=== PATIENT | female | born 1975 | race Caucasian/White ===

== ENCOUNTER 2020-10-04 21:02 | Emergency (ER) | payer OTHER, SELFPAY ==
[2020-10-04 21:25] VITALS: BP 111/62; PULSE 93; RESP 18; TEMP 36.9; O2SAT 97
[2020-10-04] MEDS: BELLADONNA ALK/PHENOB ELIX 10 ML, MAG HYDROX/ALUMINUM HYD/SIMETH 30 ML, LIDOCAINE HCL 2... PO (23:01)
[2020-10-04 23:41] VITALS: BP 122/68; PULSE 84; RESP 18; O2SAT 99
--- NOTE | 2020-10-05 00:01 | ED.NAVMDI ---
HPI - Nausea/Vomiting/Diarrhea General Chief complaint: Nausea/Vomiting/Diarrhea Stated complaint: upset stomach Time Seen by Provider: 10/04/20 22:39 History of Present Illness HPI Narrative: Patient is a 45-year-old female who presents ER with bubbling stomach discomfort. Ongoing over the last couple of days. She has bubbling that goes up into the back of her throat and makes her feel like she has to spit. She has a very bad taste in the back of her throat. She is able to eat and drink but feels like he is constantly trying to come back up. No fevers or chills or sweats. No abdominal tenderness. Denies having similar symptoms previously. Related Data Home Medications Medication Instructions Recorded Confirmed oxcarbazepine 150 mg PO DAILY 10/04/20 10/04/20 propranolol 40 mg PO DAILY 10/04/20 10/04/20 quetiapine 100 mg PO DAILY 10/04/20 10/04/20 valacyclovir 500 mg PO DAILY 10/04/20 10/04/20 Allergies Allergy/AdvReac Type Severity Reaction Status Date / Time bupropion [From Wellbutrin] Allergy Rash Verified 10/04/20 22:58 Review of Systems Review of Systems: All systems reviewed & are unremarkable except as noted in HPI and below Constitutional: Constitutional: Denies chills and Denies fever(s) Respiratory: Respiratory: Denies cough and Denies dyspnea Gastrointestinal: Gastrointestinal: Reports abdominal pain, Reports bloating, Reports heartburn, Reports nausea and Denies vomiting PMFSH Past Medical History Medical History (Updated 10/05/20 @ 00:09 by Jared Navarrete MD) Anxiety Surgical History Surgical History (Updated 10/05/20 @ 00:09 by Jared Navarrete MD) History of tonsillectomy History of tubal ligation Social History Social History (Updated 10/05/20 @ 00:09 by Jarde Navarrete MD) Smoking status: Current every day smoker Alcohol intake: former Exam Narrative: Exam Narrative: GENERAL: Well-appearing, sitting upright in bed spitting into emesis bag, well-nourished, and in no acute distress. HEAD: Normocephalic, atraumatic. ENT: Mucous membranes moist. EXTREMITIES: Normal range of motion. No edema. SKIN: Warm, dry, no rash. NEURO: Alert and oriented x3. PSYCH: Normal mood and affect. Course Course Emergency Course: Patient had improvement with GI cocktail. Discharge home with Protonix. Follow-up with PCP. Vital Signs Vital signs: Vital Signs Temperature 98.4 F 10/04/20 21:25 Pulse Rate 93 10/04/20 21:25 Respiratory Rate 18 10/04/20 21:25 Blood Pressure 111/62 10/04/20 21:25 Pulse Oximetry 97 10/04/20 21:25 Temperature 98.4 F 10/04/20 21:25 Pulse Rate 84 10/04/20 23:41 Respiratory Rate 18 10/04/20 23:41 Blood Pressure 122/68 10/04/20 23:41 Pulse Oximetry 99 10/04/20 23:41 Discharge Plan Discharge Clinical Impression: GERD (gastroesophageal reflux disease) Patient Disposition: Home, Self-Care Condition: Stable Instructions: Diet for Stomach Ulcers and Gastritis (ED), GERD (Gastroesophageal Reflux Disease) (ED) Additional Instructions: Return to the ER if you have fever over 100.4 ?F, you cannot keep down food or water, you have severe abdominal pain, you have additional concerns. Prescriptions: New pantoprazole 40 mg tablet,delayed release (DR/EC) 40 mg PO HS Qty: 14 RF: 0 No Action oxcarbazepine 150 mg tablet 150 mg PO DAILY RF: 0 valacyclovir 500 mg tablet 500 mg PO DAILY RF: 0 quetiapine 100 mg tablet 100 mg PO DAILY RF: 0 propranolol 40 mg tablet 40 mg PO DAILY RF: 0 Follow-up/Referrals: PHYSICIAN NOT ON STAFF,NONSTAFF [Primary Care Provider] - Olivier Buckley DO [Physician] - 1 Week
[2020-10-05] MEDS: PANTOPRAZOLE 40 MG TABLET PO (00:27)
[2020-10-05 00:30] VITALS: BP 117/62; PULSE 79; RESP 18; O2SAT 100
== END 2020-10-05 00:30 | disposition home or self-care (01) ==
PROVIDERS: Emergency Provider Emergency Medicine
DX: K21.9 Gastro-esophageal reflux disease without esophagitis (principal); F41.9 Anxiety disorder, unspecified; F17.200 Nicotine dependence, unspecified, uncomplicated
CPT/HCPCS: 99283; A9270

== ENCOUNTER 2020-11-26 02:40 | Emergency (ER) | payer OTHER, SELFPAY ==
--- NOTE | ~2020-11-26 | CT_ITS ---
EXAMINATION: CT abdomen pelvis w con INDICATION: Right lower abdominal pain TECHNIQUE: Computed tomographic images of the abdomen and pelvis were obtained after the administrati on of 100 cc of Omnipaque 350 intravenous contrast. The dose-length product (DLP) was 166.28 mGy-cm. Automated exposure control and iterative reconstruction technique were employed. COMPARISON: None available FINDINGS: Minimal dependent atelectasis is present in the lung bases. The heart size is normal. Cysts of the liver measure up to 4 mm. The spleen, pancreas, gallbladder, and adrenal glands are normal. T he left kidney is unremarkable. Cysts of the right kidney measure up to 8 mm. There is calcified athe rosclerosis of the aorta and many of the other arteries. No pathologically enlarged abdominal or pelv ic lymph nodes are identified. The appendix is normal. There is an 11 mm cystic area to the left of m idline located behind the pubic symphysis which could reflect a Bonifacio duct cyst or possible urethra l diverticulum. A fat-containing umbilical hernia is noted. IMPRESSION: 1. No CT correlate for the patient's symptoms. Reviewed, dictated and finalized at location B.
[2020-11-26 02:45] VITALS: BP 108/64; PULSE 74; RESP 18; TEMP 36.3; O2SAT 99
[2020-11-26 03:11] LABS: Basophils Absolute Auto 0.1 K/mm3 (0.0-0.1); Eosinophils Absolute Auto 0.2 K/mm3 (0-0.3); Eosinophils Percent Auto 3.3 % (0-4.4); Hematocrit 40.1 % (37.0-47.0); Hemoglobin 13.6 g/dL (12.0-15.0); Immature Granulocyte Absolute 0.02 K/mm3 (0.00-0.031); Immature Granulocyte Percent A 0.3 % (0-0.5); Lymphocytes Percent Auto 46.7 % (18.3-44.2); Mean Corpuscular HGB Conc 33.9 g/dl (32-36); Mean Corpuscular Hemoglobin 31.1 pg (26-34); Mean Corpuscular Volume 91.6 fl (80-100); Mean Platelet Volume 9.4 fl (7.4-10.4); Monocytes Absolute Auto 0.7 K/mm3 (0.1-0.6); Monocytes Percent Auto 9.2 % (2.6-8.5); Neutrophils Absolute Auto 2.9 K/mm3 (1.3-6.7); Neutrophils Percent Auto 39.5 % (45.5-73.1); Platelet Count Result 263 k/mm3 (150-375); Red Blood Count 4.38 M/mm3 (4.2-5.4); Red Cell Distribution Width 12.7 % (11.5-14.5); White Blood Count 7.3 K/mm3 (4.5-10.0)
[2020-11-26 03:22] LABS: Alanine Aminotransferase 14 U/L (4-35); Albumin Level 4.2 g/dL (3.5-5.1); Alkaline Phosphatase 54 U/L (38-126); Anion Gap 8 mmol/L (8-16); Aspartate Amino Transferase 21 U/L (14-36); Bilirubin,Total 0.3 mg/dL (0.2-1.3); Blood Urea Nitrogen 10 mg/dL (7-17); Calcium 8.8 mg/dL (8.4-10.2); Carbon Dioxide 22 mmol/L (22-30); Chloride 105 mmol/L (98-107); Estimated CRCL calculation 62 ml/min; Estimated Glomerular Filt Rate > 60; Glucose 100 mg/dL (65-110); Lipase 60 U/L (23-300); Potassium 3.3 mmol/L (3.4-5.0); Sodium 135 mmol/L (137-145)
--- NOTE | 2020-11-26 04:03 | PC.NURSE ---
pt ambulated to intake nurse demanding a cup of water. pt states I have anxiety, i need a cup of water now. I have pills in my mouth.
--- NOTE | 2020-11-26 04:12 | PC.NURSE ---
this rn observed patient pacing the waiting room from end to end, yelling into the phone, and telling someone hurry the [facility] up, get me out of here, its this [facility]
--- NOTE | 2020-11-26 04:21 | PC.NURSE ---
financial services specialist observed patient walking in front of intake desk, and verbalize I am going to fucking Kill myself.
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
--- NOTE | 2020-11-26 04:37 | PC.NURSE ---
Pt states that she would never kill herself because she made a promise to her son that she wouldn't and if she broke that promise she doesn't know what would happen. Pt states that thinking about using blades on her wrists doesn't count as intending to kill herself. Pt is frequently shifting subjects, talking to herself about what is real and what is not, unable to complete a thought before moving on to the next.
--- NOTE | 2020-11-26 04:43 | PC.NURSE ---
Pt arguing with people who are not there, hearing voices. Pt appears to be agitated at this time.
--- NOTE | 2020-11-26 04:51 | PC.NURSE ---
spoke with patient mother, patient recently moved in with her and patient has a history of bi-polar, ptsd, and behavior disorder. Per mother patient is an alcoholic, although she does not feel she drank today.
[2020-11-26 05:36] LABS: Add Urine Microscopic? YES; Appearance Urine Cloudy (Clear); Bacteria Urine Trace /hpf; Bilirubin Urine Negative (Negative); Blood Urine Negative (Negative); Color Urine Yellow (Yellow); Glucose Urine UA Negative (Negative); Ketones Urine Negative (Negative); Leukocyte Esterase Ur 3+ LEU/UL (Negative); Mucus Urine Heavy /lpf; Nitrate Urine Negative (Negative); Protein Urine 1+ mg/dL (Negative); Specific Grav Ur 1.024 (1.001-1.035); Squamous Epithelial Cell Urine Many /hpf (Few); Urobilinogen Urine Negative mg/dL (<2.0); WBC Urine >75 /hpf
[2020-11-26 05:43] LABS: Ethanol < 10 mg/dL (<10)
[2020-11-26 05:57] LABS: Amphetamine Screen Urine Negative (Negative); Barbiturate Screen Urine Negative (Negative); Benzodiazepines Screen Urine Negative (Negative); Cannabinoid Screen Urine Negative (Negative); Cocaine Screen Urine Negative (Negative); Methadone Screen Urine Negative (Negative); Opiate Screen Urine Negative (Negative); Phencyclidine Screen Urine Negative (Negative)
[2020-11-26 06:10] VITALS: BP 110/71; PULSE 62; RESP 16; TEMP 36.9; O2SAT 100
--- NOTE | 2020-11-26 07:08 | ED.PSYCH ---
HPI - Psych General Chief Complaint: Psychiatric Symptoms <Laura Childers MD - Last Filed: 11/26/20 08:38> Stated Complaint: weak, gas is excaping from some where it shouldnt <Laura Childers MD - Last Filed: 11/26/20 08:38> Time Seen by Provider: 11/26/20 05:45 <Laura Childers MD - Last Filed: 11/26/20 08:38> Source: patient and RN notes reviewed <Laura Childers MD - Last Filed: 11/26/20 08:38> Mode of arrival: ambulatory <Laura Childers MD - Last Filed: 11/26/20 08:38> Limitations: no limitations <Laura Childers MD - Last Filed: 11/26/20 08:38> History of Present Illness HPI Narrative: This is a 45 year old female with history of PTSD, bipolar who presents for evaluation of abdominal pain. She developed weakness, abdominal discomfort 1 hour prior to coming to ER. She also reports increased bubbling in her stomach. She denies nausea, vomiting. She does reports vaginal irritation and itching. She thinks she has a UTI. She denies vaginal discharge. Nursing staff states on arrival patient told them she lied about having abdominal pain, but she was here for psychiatric issue. Nursing staff states patient told them she wanted to kill herself. Patient admits to have suicidal thoughts in the past but she states she told her son should would not do anything. She does admit she is having increased anxiety and flare up of her PTSD. <Laura Childers MD - Last Filed: 11/26/20 08:38> Related Data Home Medications: Home Medications Medication Instructions Recorded Confirmed oxcarbazepine 150 mg PO DAILY 10/04/20 10/04/20 propranolol 40 mg PO DAILY 10/04/20 10/04/20 quetiapine 100 mg PO DAILY 10/04/20 10/04/20 valacyclovir 500 mg PO DAILY 10/04/20 10/04/20 citalopram mg 11/26/20 hydroxyzine pamoate 11/26/20 <Laura Childers MD - Last Filed: 11/26/20 08:38> Allergies/Adverse Reactions: Allergies Allergy/AdvReac Type Severity Reaction Status Date / Time bupropion [From Wellbutrin] Allergy Rash Verified 11/26/20 02:48 <Laura Childers MD - Last Filed: 11/26/20 08:38> Review of Systems Review of Systems: All systems reviewed & are unremarkable except as noted in HPI and below <Laura Childers MD - Last Filed: 11/26/20 08:38> [facility] Past Medical History Medical History: Medical History (Updated 11/26/20 @ 22:37 by Niesha Bullock MD) Anxiety PTSD (post-traumatic stress disorder) <Laura Childers MD - Last Filed: 11/26/20 08:38> Surgical History Surgical History: Surgical History History of tonsillectomy History of tubal ligation <Laura Childers MD - Last Filed: 11/26/20 08:38> Social History Social History: Social History (Updated 11/26/20 @ 07:12 by Laura Childers MD) Smoking status: Current every day smoker Alcohol intake: current Substance use type: former substance user Gender identity (if verbalized by the patient): Female Sexual Orientation (if Verbalized by the Patient): Straight or Heterosexual <Laura Childers MD - Last Filed: 11/26/20 08:38> Exam Const: General: no acute distress and alert <Laura Childers MD - Last Filed: 11/26/20 08:38> Orientation/consciousness: patient oriented x3 <Laura Childers MD - Last Filed: 11/26/20 08:38> Neck: Neck: no lymphadenopathy <Laura Childers MD - Last Filed: 11/26/20 08:38> Chest: Chest palpation & inspection: normal inspection of the chest <Laura Childers MD - Last Filed: 11/26/20 08:38> Resp: Effort & Inspection: normal respiratory effort and no retractions <Laura Childers MD - Last Filed: 11/26/20 08:38> Auscultation: clear to auscultation bilaterally <Laura Childers MD - Last Filed: 11/26/20 08:38> Cardio: Rate: regular rate <Laura Childers MD - Last Filed: 11/26/20 08:38> Rhythm: regular rhythm <Laura Childers MD - Last Filed: 11/26/20 08
--- NOTE | 2020-11-26 07:15 | PC.NURSE ---
Ordered patient a breakfast tray
--- NOTE | 2020-11-26 07:45 | PC.NURSE ---
This RN in room to introduce self and check room. This RN asked pt how she was feeling and if she had thoughts of hurting herself. Pt states yes i want to hurt myslef but i can't in here so i have really bad anxiety! Pt begins to escalates and starts screaming GET ME SOMETHING ANXIETY NOW!!! get me a DOCTOR NOW! pt then begins to scream flight of ideas and screaming foul language. Pt calling this RN and Dr. Liseth anna names. Dr Liseth ARGUETA for 2 mg of IV ativan.
[2020-11-26 07:53] VITALS: BP 104/81; PULSE 68; RESP 18; O2SAT 99
[2020-11-26] MEDS: LORazepam INJ (*CRX) 2 MG/ML VIAL (07:53)
--- NOTE | 2020-11-26 08:00 | PC.NURSE ---
Pt back in bed, pt apologizing for screaming. Pt given breakfast tray and thanks me.
--- NOTE | 2020-11-26 08:26 | PC.NURSE ---
[facility] here to speak with pt, however pt is sleeping and not arousable at this time. they state they will come back when she is awake
--- NOTE | 2020-11-26 11:39 | PC.NURSE ---
called crisis to come back out to evaluate pt. Tammy states that pt needs to have her rapid covid swab done first. swab ordered
[2020-11-26 12:50] LABS: EDCOVIDSCREEN Negative (Negative)
[2020-11-26 12:56] VITALS: BP 99/66; PULSE 81; RESP 18; O2SAT 99
--- NOTE | 2020-11-26 12:59 | PC.NURSE ---
ordered pt a lunch tray
--- NOTE | 2020-11-26 13:00 | PC.NURSE ---
Called Tammy at crisis and let her know of pt covid results. She states that she may have a meeting and if so it will be around 1400 before she can get here.
--- NOTE | 2020-11-26 13:30 | PC.NURSE ---
Tammy here to evaluate pt
--- NOTE | 2020-11-26 14:18 | PC.NURSE ---
Pt agrees to be admitted voluntarily
--- NOTE | 2020-11-26 14:30 | PC.NURSE ---
Tammy called [facility], and [facility]. [facility] asked to call back in a hour and Jez states they will call back with an update. Pt packet faxed to [facility] and a facesheet was faxed to [facility]
--- NOTE | 2020-11-26 15:06 | PC.NURSE ---
Pt moved from room 9 to 15
[2020-11-26] MEDS: LORazepam INJ (*CRX) 2 MG/ML VIAL 1 MG IV PUSH (16:03)
--- NOTE | 2020-11-26 16:15 | PC.NURSE ---
[facility]co on the phone to speak with the patient
--- NOTE | 2020-11-26 16:58 | PC.NURSE ---
[facility] called and stated that they are not going to accept patient at this time
[2020-11-26 18:43] VITALS: BP 91/53; PULSE 68; RESP 18; TEMP 37; O2SAT 99
[2020-11-26 21:40] VITALS: BP 99/49; PULSE 70; TEMP 37.2; O2SAT 98
--- NOTE | 2020-11-26 21:44 | PC.NURSE ---
Jaye from [facility] called, Dr Rodrigez accepting doc. They will call back to get report.
--- NOTE | 2020-11-26 21:53 | PC.NURSE ---
Yunier called about pt update, relayed that pt has been accepted at [facility].
[2020-11-27 01:40] VITALS: BP 109/78; PULSE 73; RESP 16; O2SAT 98
== END 2020-11-27 03:00 ==
PROVIDERS: General Practice; Emergency Provider Emergency Medicine
DX: R45.851 Suicidal ideations (principal); F41.9 Anxiety disorder, unspecified; N39.0 Urinary tract infection, site not specified; F43.10 Post-traumatic stress disorder, unspecified; F31.9 Bipolar disorder, unspecified; Z20.822 Contact with and (suspected) exposure to COVID-19
CPT/HCPCS: 36415; 74177; 80053; 80307; 81001; 81025; 83690; 84443; 85025; 87086; 87088; 87426; 96365; 96375; 96376; 99285; C9803; J0696; J2060; Q9967